=== PATIENT | male | born 1970 | race African-American/Black ===

== ENCOUNTER 2018-03-31 18:33 | Inpatient (IN) | payer SELFPAY ==
[~2018-03-31] VITALS: Ht 175.3 cm; Wt 165.6 kg
[2018-03-31 18:33] VITALS: BP_SYST 189
[2018-03-31] MEDS ORDERED: NACL 0.9% 1,000 ML IV ONE (18:38)
[2018-03-31] MEDS ORDERED: ASPIRIN 81 MG TAB.CHEW PO ONE (18:45)
[2018-03-31] MEDS ORDERED: MORPHINE 4 MG/ML INJ. SYRINGE IVP ONE (18:45)
[2018-03-31] MEDS ORDERED: CLOPIDOGREL BISULFATE 75 MG TABLET PO ONE (18:45)
[2018-03-31] MEDS ORDERED: NITROGLYCERIN 0.4 MG TAB.SUBL SL ONE ×2 (18:45→23:30)
[2018-03-31] MEDS ORDERED: ONDANSETRON HCL 4 MG/2 ML VIAL IVP ONE (18:45)
[2018-03-31 19:18] LABS: BASOPHILS # (AUTO) 0.1 K/uL (0.0-0.2); BASOPHILS % (AUTO) 0.9 % (0.0-2.0); EOSINOPHILS # (AUTO) 0.2 K/uL (0.0-0.4); EOSINOPHILS % (AUTO) 1.9 % (0.0-4.0); HEMATOCRIT 40.2 % (36-54); LYMPHOCYTES # (AUTO) 0.9 K/uL (1.0-5.5); LYMPHOCYTES % (AUTO) 9.3 % (20.5-51.5); MEAN CORPUSCULAR HEMOGLOBIN 27 pg (27-31); MEAN CORPUSCULAR HGB CONC 32 % (32-36); MEAN CORPUSCULAR VOLUME 84 fL (79.0-98.0); MONOCYTES # (AUTO) 0.3 K/uL (0.0-1.0); MONOCYTES % (AUTO) 3.4 % (1.7-9.3); NEUTROPHILS # (AUTO) 8.3 K/uL (1.8-7.7); NEUTROPHILS % (AUTO) 84.5 % (40.0-70.0); PLATELET COUNT (AUTO) 299 K/uL (130-430); RED BLOOD CELL COUNT(AUTO) 4.81 MIL/uL (4.2-6.2); RED CELL DISTRIBUTION WIDTH 16.7 % (9.0-15.0); WHITE BLOOD COUNT (AUTO) 9.8 K/uL (4.8-10.8)
[2018-03-31 19:26] LABS: CALCIUM 8.5 mg/dL (8.4-11.0); CREATININE 2.01 mg/dL (0.55-1.30); POTASSIUM 3.1 mmol/L (3.5-5.1)
[2018-03-31 19:30] LABS: ALBUMIN 3.5 g/dL (3.4-4.8); TOTAL BILIRUBIN 0.6 mg/dL (0.0-1.0)
[2018-03-31 19:33] LABS: PROTHROMBIN TIME 10.3 SECS (9.5-12.5)
[2018-03-31 19:56] LABS: CKMB RELATIVE INDEX 0.5 (0.0-2.9); CREATINE KINASE MB 1.9 ng/mL (0-3.6)
[2018-03-31] MEDS ORDERED: NITROGLYCERIN 1 INCH (GM) OINT. TP ONE (20:15)
[2018-03-31] MEDS ORDERED: MORPHINE 4 MG/ML INJ. SYRINGE ONE (20:50)
[2018-03-31] MEDS ORDERED: ONDANSETRON HCL 4 MG/2 ML VIAL ONE ×2 (20:51→20:56)
[2018-03-31] MEDS ORDERED: POTASSIUM CHLORIDE 10 MEQ TAB.PRT.SR PO ONE (23:15)
[2018-03-31] MEDS ORDERED: CAT.1 PO (23:22)
[2018-03-31] MEDS ORDERED: ALBMDI INH (23:22)
[2018-03-31] MEDS ORDERED: HYDR-4037 PO (23:22)
[2018-03-31] MEDS ORDERED: COR3.125 PO (23:22)
[2018-03-31] MEDS ORDERED: INSULIN REGULAR, HUMAN 100 UNITS/ML, 10 ML VIAL (novoLIN R) SUBCUT PRN (23:30)
[2018-03-31 23:51] VITALS: BP_SYST 161
[2018-04-01] VITALS (7 sets, daily range): BP systolic 119–164
[2018-04-01] MEDS ORDERED: MORPHINE 2 MG/ML INJ. SYRINGE IVP SCH (01:30)
[2018-04-01] MEDS: NACL 0.9% 1,000 ML IV SCH ×2 (01:35→14:36)
[2018-04-01] MEDS ORDERED: HYDR100T25 PO (02:12)
[2018-04-01] MEDS ORDERED: CARV25TA55 PO (02:12)
[2018-04-01] MEDS ORDERED: cloNIDine HCL 0.1 MG TABLET PO SCH (02:30)
[2018-04-01] MEDS: ASPIRIN 81 MG TAB.CHEW PO SCH (08:42)
[2018-04-01] MEDS: ATORVASTATIN 20 MG TABLET PO SCH (08:42)
[2018-04-01] MEDS: CARVEDILOL 25 MG TABLET (COREG) PO SCH ×2 (08:47→18:07)
[2018-04-01] MEDS: hydrALAZINE HCL 25 MG TABLET PO SCH ×2 (08:49→20:26)
[2018-04-01] MEDS: LISINOPRIL 10 MG TABLET (PRINIVIL) PO SCH (08:51)
[2018-04-01] MEDS ORDERED: METOPROLOL TARTRATE 25 MG TABLET PO SCH (09:00)
[2018-04-01] MEDS ORDERED: traMADol HCL HCL 50 MG TABLET (ULTRAM) PO PRN (12:00)
[2018-04-01] MEDS ORDERED: MORPHINE 2 MG/ML INJ. SYRINGE IVP PRN ×2 (12:00→13:00)
[2018-04-01] MEDS ORDERED: MORPHINE 2 MG/ML INJ. SYRINGE ONE (12:24)
[2018-04-01] MEDS ORDERED: NITROGLYCERIN 0.4 MG TAB.SUBL SL PRN (13:00)
[2018-04-01] MEDS ORDERED: MAGNESIUM SULFATE 50 ML IV PRN (13:00)
[2018-04-01] MEDS ORDERED: LORazepam 2 MG/ML VIAL IVP PRN (13:00)
[2018-04-01] MEDS ORDERED: MUPIROCIN 2% TOPICAL OINTMENT 22 GM NS PRN (13:00)
[2018-04-01] MEDS ORDERED: DOCUSATE SODIUM 100 MG CAPSULE PO PRN (13:00)
[2018-04-01] MEDS ORDERED: ONDANSETRON HCL 4 MG/2 ML VIAL IVP PRN (13:00)
[2018-04-01] MEDS ORDERED: IPRATROPIUM/ALBUTEROL SULFATE 3 ML AMPUL.NEB INH PRN (13:15)
[2018-04-01] MEDS ORDERED: PANTOPRAZOLE SODIUM 40 MG TAB PO ONE (13:45)
[2018-04-01 13:56] LABS: FREE T4 (FREE THYROXINE) 0.7 ng/dL (0.6-1.6); THYROID STIMULATING HORMONE 2.26 uIu/mL (0.34-4.82)
[2018-04-01] MEDS: MORPHINE 2 MG/ML INJ. SYRINGE IVP PRN (19:51)
[2018-04-01] MEDS ORDERED: HEPARIN SODIUM,PORCINE 5000 UNITS/ML VIAL SUBCUT SCH (21:00)
[2018-04-02 00:07] VITALS: BP_SYST 154
[2018-04-02] MEDS: NACL 0.9% 1,000 ML IV SCH ×2 (01:55→13:35)
[2018-04-02] MEDS: ZOLPIDEM TARTRATE 5 MG TABLET PO PRN (02:06)
[2018-04-02 07:50] LABS: BASOPHILS # (AUTO) 0.1 K/uL (0.0-0.2); EOSINOPHILS # (AUTO) 0.3 K/uL (0.0-0.4); HEMOGLOBIN 12.5 g/dL (14.0-18.0); LYMPHOCYTES # (AUTO) 1.4 K/uL (1.0-5.5); MONOCYTES # (AUTO) 0.4 K/uL (0.0-1.0); MONOCYTES % (AUTO) 4.7 % (1.7-9.3); NEUTROPHILS # (AUTO) 6.3 K/uL (1.8-7.7); RED CELL DISTRIBUTION WIDTH 16.8 % (9.0-15.0); WHITE BLOOD COUNT (AUTO) 8.5 K/uL (4.8-10.8)
[2018-04-02 08:01] LABS: ALBUMIN 3.1 g/dL (3.4-4.8); CALCIUM 8.3 mg/dL (8.4-11.0); CREATININE 1.32 mg/dL (0.55-1.30); PHOSPHORUS 3.2 mg/dL (2.7-4.5); POTASSIUM 3.1 mmol/L (3.5-5.1); THYROID STIMULATING HORMONE 1.46 uIu/mL (0.34-4.82); TOTAL BILIRUBIN 0.7 mg/dL (0.0-1.0)
[2018-04-02 08:11] LABS: BASOPHILS % (AUTO) 1.1 % (0.0-2.0); EOSINOPHILS % (AUTO) 3.3 % (0.0-4.0); HEMATOCRIT 39.4 % (36-54); LYMPHOCYTES % (AUTO) 16.9 % (20.5-51.5); MEAN CORPUSCULAR HEMOGLOBIN 27 pg (27-31); MEAN CORPUSCULAR HGB CONC 32 % (32-36); MEAN CORPUSCULAR VOLUME 85 fL (79.0-98.0); PLATELET COUNT (AUTO) 292 K/uL (130-430); RED BLOOD CELL COUNT(AUTO) 4.66 MIL/uL (4.2-6.2)
[2018-04-02] MEDS: ATORVASTATIN 20 MG TABLET PO SCH (08:47)
[2018-04-02] MEDS: ASPIRIN 81 MG TAB.CHEW PO SCH (08:48)
[2018-04-02] MEDS: CARVEDILOL 25 MG TABLET (COREG) PO SCH ×2 (08:48→17:28)
[2018-04-02] MEDS: LISINOPRIL 10 MG TABLET (PRINIVIL) PO SCH ×2 (08:48→22:07)
[2018-04-02] MEDS: hydrALAZINE HCL 25 MG TABLET PO SCH ×2 (08:49→17:28)
[2018-04-02] MEDS ORDERED: PANTOPRAZOLE SODIUM 40 MG TAB PO SCH (09:00)
[2018-04-02] MEDS: cloNIDine HCL 0.1 MG TABLET PO PRN (10:20)
[2018-04-02] MEDS: POTASSIUM CHLORIDE 20 MEQ TAB.PRT.SR PO PRN (11:36)
[2018-04-02 12:14] VITALS: BP_SYST 162
[2018-04-02 13:18] LABS: T4 (THYROXINE) 6.8 ug/dL (4.5-12.0)
[2018-04-02 14:59] VITALS: BP_SYST 141
[2018-04-02 20:21] VITALS: BP_SYST 162
[2018-04-02] MEDS: MORPHINE 2 MG/ML INJ. SYRINGE IVP PRN (21:55)
[2018-04-02] MEDS: PANTOPRAZOLE SODIUM 40 MG TAB PO SCH (22:07)
[2018-04-03 00:21] VITALS: BP_SYST 158
[2018-04-03] MEDS: hydrALAZINE HCL 25 MG TABLET PO SCH ×2 (00:27→09:37)
[2018-04-03 00:28] LABS: BILIRUBIN,URINE NEGATIVE (NEGATIVE); BLOOD, URINE NEGATIVE (NEGATIVE); CLARITY/URINE CLEAR (CLEAR); COLOR,URINE YELLOW (YELLOW); GLUCOSE,URINE NEGATIVE (NEGATIVE); KETONES,URINE NEGATIVE (NEGATIVE); LEUKOCYTE ESTERASE ,URINE NEGATIVE (NEGATIVE); NITRITE, URINE NEGATIVE (NEGATIVE); PROTEIN URINE NEGATIVE (NEGATIVE); UROBILINOGEN,URINE 0.2 (0.2-1.0)
[2018-04-03 00:45] LABS: BENZODIAZEPINE, URINE POSITIVE (NEG <=150); OPIATE, URINE POSITIVE (NEG <=100)
[2018-04-03 00:46] LABS: BARBITURATE, URINE NEGATIVE (NEG <=200); CANNABINOID, URINE NEGATIVE (NEG <=50); COCAINE, URINE NEGATIVE (NEG <=150); METHAMPHETAMINES SCREEN,URINE NEGATIVE (NEG <=500); PHENCYCLIDINE SCREEN,URINE NEGATIVE (NEG <=25); UR TRICYCLIC ANTIDEPRESSANTS NEGATIVE (NEG <=300); URINE AMPHETAMINE NEGATIVE (NEG <=500); URINE METHADONE NEGATIVE (NEG <=200); URINE OXYCODONE SCREEN NEGATIVE (NEG <=100); URINE PROPOXYPHENE SCREEN NEGATIVE (NEG <=300)
[2018-04-03] MEDS: ZOLPIDEM TARTRATE 5 MG TABLET PO PRN (03:07)
[2018-04-03] MEDS: NACL 0.9% 1,000 ML IV SCH ×2 (05:25→14:00)
[2018-04-03 08:10] VITALS: BP_SYST 158
[2018-04-03] MEDS ORDERED: HYDROCHLOROTHIAZIDE 25 MG TABLET (HCTZ) PO SCH (09:00)
[2018-04-03 09:03] LABS: CALCIUM 8.4 mg/dL (8.4-11.0); CREATININE 1.24 mg/dL (0.55-1.30); POTASSIUM 3.2 mmol/L (3.5-5.1)
[2018-04-03] MEDS: PANTOPRAZOLE SODIUM 40 MG TAB PO SCH (09:27)
[2018-04-03] MEDS: ASPIRIN 81 MG TAB.CHEW PO SCH (09:27)
[2018-04-03] MEDS: ATORVASTATIN 20 MG TABLET PO SCH (09:28)
[2018-04-03] MEDS: POTASSIUM CHLORIDE 20 MEQ TAB.PRT.SR PO PRN (09:28)
[2018-04-03] MEDS: LISINOPRIL 10 MG TABLET (PRINIVIL) PO SCH (09:28)
[2018-04-03] MEDS: CARVEDILOL 25 MG TABLET (COREG) PO SCH (09:30)
[2018-04-03] MEDS: cloNIDine HCL 0.1 MG TABLET PO PRN (10:56)
[2018-04-03] MEDS: MORPHINE 2 MG/ML INJ. SYRINGE IVP PRN (11:45)
[2018-04-03 14:25] VITALS: BP_SYST 164
[2018-04-03 14:26] LABS: CALCIUM 8.4 mg/dL (8.4-11.0); CREATININE 1.37 mg/dL (0.55-1.30)
[2018-04-03 15:00] VITALS: BP_SYST 156
[2018-04-03 15:01] VITALS: BP_SYST 156
[2018-04-03 15:12] VITALS: BP_SYST 130
== END 2018-04-03 16:30 | disposition home or self-care (01) | DRG 205 ==
LOC: SED 18:33 → MERGE 23:27 → STU 23:27 → EDBD 23:27 → STU 23:33
PROVIDERS: ADMIT Family Medicine; ATTEND Family Medicine
DX: M94.0 Chondrocostal junction syndrome [Tietze] (principal); N17.0 Acute kidney failure with tubular necrosis; Z68.43 Body mass index [BMI] 50.0-59.9, adult; G90.9 Disorder of the autonomic nervous system, unspecified; E66.01 Morbid (severe) obesity due to excess calories; E87.6 Hypokalemia; G43.909 Migraine, unspecified, not intractable, without status migrainosus; G89.29 Other chronic pain; I13.10 Hypertensive heart and chronic kidney disease without heart failure, with stage 1 through stage 4 chronic kidney disease, or unspecified chronic kidney disease; N18.3 Chronic kidney disease, stage 3 (moderate); W18.30XA Fall on same level, unspecified, initial encounter; J45.909 Unspecified asthma, uncomplicated; Z80.9 Family history of malignant neoplasm, unspecified; Z82.49 Family history of ischemic heart disease and other diseases of the circulatory system; Z90.49 Acquired absence of other specified parts of digestive tract; Z91.19 Patient's noncompliance with other medical treatment and regimen; Y93.89 Activity, other specified; Y92.89 Other specified places as the place of occurrence of the external cause; Y99.8 Other external cause status; Z88.0 Allergy status to penicillin; Z88.8 Allergy status to other drugs, medicaments and biological substances; Z79.899 Other long term (current) drug therapy; I25.2 Old myocardial infarction
CPT/HCPCS: 36415; 70450-TC; 71045; 71250-TC; 73564; 80048; 80053; 80061; 80307; 81003; 82150-TC; 82550-TC; 82553-TC; 82962; 83690-TC; 83735-TC; 83880; 84100-TC; 84436; 84439; 84443-TC; 84479; 84480; 84484; 85025; 85610-TC; 85730-TC; 87086; 93005; 93306; 93880; 95816; 96374; 96375; 99291; J1815; J2060; J2270; J2405; J7030